=== PATIENT | female | born 1950 | race Caucasian/White ===

== ENCOUNTER → 2022-06-29 | Outpatient (CLI) | payer OTHER ==
[~2022-06-29] MED LIST: ADRENAL SUPPORT PO; AMLO5 PO; ASPI81CH PO; B Complex PO; BUPR150T2; CALCA500CH PO; CALCIUM 1200 PO; CENTRUM SILVER1 EAC2 PO; CHOL10002; CHOL10002 PO; CLON.5 PO; DULO60; ESCI10 PO; FLAX PO; FLUO20; HYDCHL25 PO; HYDPAM25 PO; IBUP200; LAMO25 PO; LORA2 PO; LOSA50 PO; LOSARTAN POTAS100 MG PO; NIFE10; NIFE30ER PO; PARO20 PO; PARO25 PO; PAXIL 25 MG PO; RISP1; RXLORA1 PO; VITS
== END | disposition home or self-care (01) ==
LOC: LAB 16:23 → LAB SHORT 16:23
DX: R53.83 Other fatigue (principal)
CPT/HCPCS: 87086; 87147

== ENCOUNTER 2024-08-18 14:40 | Inpatient (IN) | payer OTHER ==
[~2024-08-18] VITALS: Ht 162.6 cm; Wt 56.7 kg
[2024-08-18] MEDS ORDERED: Ondansetron HCl 2 MG / ML 2ML Vial IV ONE (15:05)
[2024-08-18 15:33] LABS: BASOPHILS ABSOLUTE AUTO 0.02 K/mm3 (0.00-0.23); BASOPHILS PERCENT AUTO 0 % (0-2); EOSINOPHILS PERCENT AUTO 0 % (0-6); Hematocrit 42.3 % (33.0-51.0); Hemoglobin 14.5 g/dL (11.5-16.0); IMMATURE GRAN ABSOLUTE AUTO 0.07 K/mm3 (0.00-0.10); IMMATURE GRAN PERCENT AUTO 1 % (0-1); LYMPHOCYTES ABSOLUTE AUTO 1.28 K/mm3 (0.84-5.20); LYMPHOCYTES PERCENT AUTO 11 % (21-46); MONOCYTES ABSOLUTE AUTO 0.85 K/mm3 (0.16-1.47); MONOCYTES PERCENT AUTO 7 % (4-13); Mean Corpuscular HGB 31.5 pg (26.0-34.0); Mean Corpuscular HGB Conc 34.3 g/dL (31.5-36.5); Mean Corpuscular Volume 92 fL (80-100); Mean Platelet Volume 9.1 fL (9.1-12.4); NEUTROPHILS ABSOLUTE AUTO 9.87 K/mm3 (1.96-9.15); NEUTROPHILS PERCENT AUTO 82 % (41-73); Platelet Count 295 K/mm3 (150-400); RDW Coefficient Variation 12.7 % (11.7-14.2); RDW Standard Deviation 42.8 fL (35.1-46.3); Red Blood Cell Count 4.61 M/mm3 (3.80-5.20); White Blood Cell Count 12.09 K/mm3 (4.00-11.30)
[2024-08-18 15:59] LABS: Albumin/Globulin Ratio 1.1 (0.8-1.8); Bun/Creatinine Ratio 24.3 (12.0-20.0); Calcium, Blood 9.1 mg/dL (8.5-10.1); Creatinine, Blood 0.82 mg/dL (0.40-1.00); Globulin, Blood 3.8 g/dL (2.2-4.0); Total Protein, Blood 7.8 g/dL (6.4-8.2)
[2024-08-18] MEDS ORDERED: Budeprion Xl300 MG PO (17:19)
[2024-08-18] MEDS ORDERED: ESCI20 PO (17:20)
[2024-08-18] MEDS ORDERED: LORA.5 PO (17:20)
[2024-08-18] MEDS ORDERED: Acetaminophen325 M1 PO (17:21)
[2024-08-18] MEDS ORDERED: LOSARTAN POTAS100 M1 PO (17:21)
[2024-08-18 17:22] LABS: Source, Urine Clean Catch
[2024-08-18] MEDS ORDERED: ELIQUIS5 M2 PO (17:22)
[2024-08-18] MEDS ORDERED: Potassium Chloride 40 MEQ in NS 250 ML IV ONE (17:25)
[2024-08-18] MEDS ORDERED: NS 500 ML IV SCH (17:30)
[2024-08-18 17:57] LABS: Appearance, Urine Clear (Clear); Blood, Urine 3+ (Neg); Color, Urine Amber (P-Yellow); Glucose Qualitative, Urine Neg (Neg); Ketones, Urine Neg (Neg); Leukocyte Esterase, Urine 1+ (Neg); Nitrite, Urine Neg (Neg); Protein, Urine 3+ (Neg); Specific Gravity, Urine 1.015 (1.003-1.022); Urobilinogen, Urine 1+ (Normal)
[2024-08-18] MEDS ORDERED: NS 1,000 ML BAG IR ONE (18:00)
[2024-08-18] MEDS ORDERED: Potassium Chloride 40 MEQ in NS 250 ML IV SCH (18:00)
[2024-08-18 18:04] LABS: Bilirubin, Urine 1+ (Neg)
[2024-08-18 18:06] LABS: Bacteria Few /hpf; Calcium Oxalate Crystals Mod /hpf; Hyaline Casts 0-2 /lpf (0-2); Red Blood Cells, Urine 0-2 /hpf (0-2); Squamous Epithelial Cells Few /hpf (Few)
[2024-08-18] MEDS ORDERED: NS 1,000 ML BAG IV ONE (18:30)
[2024-08-18] MEDS ORDERED: Ondansetron HCl 2 MG / ML 2ML Vial IV PRN ×2 (18:30→23:15)
[2024-08-18] MEDS ORDERED: FentaNYL Citrate 50 MCG/ML 2 ML Injection IV STA (18:38)
[2024-08-18] MEDS ORDERED: LORazepam 2 MG/ML 1ML Injection IV PRN (18:45)
[2024-08-18] MEDS ORDERED: FentaNYL Citrate 50 MCG/ML 2 ML Injection IV PRN ×2 (18:45→23:20)
[2024-08-18] MEDS ORDERED: NS 500 ML IV ONE (19:00)
[2024-08-18] MEDS ORDERED: CefOXitin Sodium 2,000 MG in NS 50 ML IV SCH (19:05)
[2024-08-18] MEDS ORDERED: NS 1,000 ML IV SCH (20:00)
[2024-08-18] MEDS ORDERED: propofoL 20 ML IV ONE (20:32)
[2024-08-18] MEDS ORDERED: FentaNYL Citrate 50 MCG/ML 2 ML Injection ONE ×3 (20:32→23:32)
[2024-08-18] MEDS ORDERED: Bupivacaine 0.5% HCl 5 MG/ML 30MLVIAL ONE (20:45)
[2024-08-18] MEDS ORDERED: ePHEDrine Sulfate 50 MG/ML 1ML Injection ONE (21:14)
--- NOTE | 2024-08-18 22:12 | NUR ---
08/18/242211 Tayler,Glenys GATES CATHETER INSTERTED BY THIS RN AT 2130. URINE OUTPUT UPON INSERTION WAS YELLOW.
[2024-08-18] MEDS ORDERED: Rocuronium Bromide 10 MG/ML 5ML Injection IV ONE (22:28)
[2024-08-18] MEDS ORDERED: Albuterol 2.5 MG/3 ML VIAL INH PRN (23:15)
[2024-08-18] MEDS ORDERED: Ondansetron HCl 2 MG / ML 2ML Vial ONE (23:20)
[2024-08-18] MEDS ORDERED: HYDROmorphone HCl/Pf 1MG SYR IV PRN (23:20)
[2024-08-18] MEDS ORDERED: Dexamethasone Sod Phos 10 MG/ML 1ML VIAL ONE (23:20)
[2024-08-18] MEDS ORDERED: Morphine Sulfate 4 MG/1 ML Injection IV PRN (23:20)
[2024-08-18] MEDS ORDERED: ePHEDrine Sulfate 50 MG/ML 1ML Injection IV PRN (23:20)
[2024-08-18] MEDS ORDERED: Sugammadex Sodium 200 MG/2ML SDV (100 MG/ML) ONE (23:22)
[2024-08-18] MEDS ORDERED: Ketorolac Tromethamine 30mg Vial IV PRN (23:30)
[2024-08-19] VITALS (19 sets, daily range): BP systolic 101–146; BP diastolic 70–98
[2024-08-19 01:25] LABS: Hematocrit 42.9 % (33.0-51.0); Hemoglobin 14.3 g/dL (11.5-16.0); Mean Corpuscular HGB 31.3 pg (26.0-34.0); Mean Corpuscular HGB Conc 33.3 g/dL (31.5-36.5); Mean Corpuscular Volume 94 fL (80-100); Mean Platelet Volume 8.8 fL (9.1-12.4); Platelet Count 222 K/mm3 (150-400); RDW Standard Deviation 44.7 fL (35.1-46.3); Red Blood Cell Count 4.57 M/mm3 (3.80-5.20); White Blood Cell Count 5.48 K/mm3 (4.00-11.30)
[2024-08-19 01:45] LABS: BAND PERCENT MAN 7 % (0-8); BASOPHILS PERCENT MAN 0 % (0-2); EOSINOPHILS PERCENT MAN 0 % (0-6); LYMPHOCYTES ABSOLUTE MAN 1.04 K/mm3 (0.84-5.20); LYMPHOCYTES PERCENT MAN 19 % (21-46); MONOCYTES ABSOLUTE MAN 0.43 K/mm3 (0.16-1.47); MONOCYTES PERCENT MAN 8 % (4-13); SEG NEUTROPHILS PERCENT MAN 66 % (41-73); TOTAL CELLS COUNTED 100
[2024-08-19 01:49] LABS: Albumin, Blood 2.7 g/dL (3.4-5.0); Bilirubin, Total 0.9 mg/dL (0.1-1.0); Bun/Creatinine Ratio 21.6 (12.0-20.0); Calcium, Blood 7.7 mg/dL (8.5-10.1); Creatinine, Blood 0.83 mg/dL (0.40-1.00); Globulin, Blood 2.7 g/dL (2.2-4.0); Potassium, Blood 3.7 mmol/L (3.5-5.5); Total Protein, Blood 5.4 g/dL (6.4-8.2)
[2024-08-19] MEDS ORDERED: DEXTROMETHORPHAN/BENZOCAINE 1 EACH LOZENGE MT PRN (06:25)
--- NOTE | 2024-08-19 06:42 | NUR ---
74 Y/O FEMALE ADMITTED FROM POST-OP AT 1252 THIS MORNING. PATIENT COMES IN POST SURGICAL FOR ROBOTIC SIGMOID COLECTOMY. SUSANNE DRESSING ON MID LOWER ABD. GATES CATHETER IS PRESENT. PATIENT HAS A HISTORY OF LEWY BODY DEMENTIA. ALTHOUGH IS A X 3. PATIENT PASSED LOOSE LIQUID STOOL TONIGHT. PASSING GAS. MAIN COMPLAINT IS A SORE THROAT FROM THE ETT. SLEPT MOST OF NIGHT. NEEDS REMINDERS, FORGETFUL. NPO CONTINUE CARE
[2024-08-19] MEDS ORDERED: OxyCODONE 5 mg/Acetamin 325 mg TABLET PO PRN ×2 (10:25→22:05)
--- NOTE | 2024-08-19 12:00 | NUR ---
PATIENT TRANSFERRED FROM PCU 20 TO ROOM 211, REPORT RECEIVED FROM EVELYN MICHEL. VSS, ON RA. REPORTS PAIN IS WELL MANAGED AT THIS TIME. SUSANNE DRAIN TO MIDLINE ABDOMINAL INCISION REMAINS C/D/I. PER REPORTS PAIN HAS HAD LIQUID STOOL AND PASSING GAS. PATIENT ORIENTED TO ROOM AND USE OF CALL LIGHT, BED ALARM SET AND FALL PRECAUTIONS IN PLACE.
--- NOTE | 2024-08-19 14:57 | NUR ---
ASSUMPTION OF CARE THIS RN ASSUMED CARE FOLLOWING REPORT FROM LIU RIVAS. PATIENT SLEEPING - EASILY AROUSABLE WITH VERBAL STIMULI. SPEECH SOFT - COMMUNICATES NEEDS EFFECTIVELY. TREMOR TO BUE NOTED. VSS. TELEMETRY SHOWING SINUS W/ PACs AT 91. DENIES CHEST PAIN, PRESSURE. ON ROOM AIR, SATs >90%. POD 1 SIGMOID COLECTOMY - ABD SOFT, HYPOACTIVE BOWEL TONES. DENIES PAIN, N/V. MIDLINE SUSANNE DRESSING WITH SCANT DRAINAGE. GATES CATHETER IN PLACE - DRAINING KORINA URINE TO GRAVITY. INCONTINENT OF STOOL - ATTENDS IN PLACE C/D/I. BED ALARM ON. CALL LIGHT IN REACH.
[2024-08-19] MEDS ORDERED: bupropion HCl XL 300 PO (15:45)
--- NOTE | 2024-08-19 17:33 | NUR ---
SHIFT SUMMARY NO ACUTE CHANGES SINCE ASSUMPTION OF CARE. PATIENT SLEEPING MOST OF THE AFTERNOON - REMAINS EASILY AROUSABLE WITH VERBAL STIMULI. VSS. NO EVENTS REPORTED BY TELEMETRY. POD 1 SIGMOID COLECTOMY. SUSANNE DRESSING C/D/I. DENIES ABD. DECREASED APPETITE - ENCOURAGING PO INTAKE DURING PERIODS OF WAKEFULNESS. GATES CATHETER IN PLACE - DRAINING KORINA URINE TO GRAVITY. EPISODES OF LOOSE STOOL - CHANGING ATTENDS PRN TO KEEP C/D/I. CALL LIGHT IN REACH. BED ALARM ON.
[2024-08-19] MEDS ORDERED: buPROPion HCL 150 MG TAB.SR.12H PO SCH (21:00)
[2024-08-19] MEDS ORDERED: NS 1,000 ML IV SCH (22:05)
--- NOTE | 2024-08-19 22:05 | NUR ---
CALL TO HOSPITALIST. CALL PLACED TO DISCUSS PAIN CONTROL AND FLUIDS. PT HAS DARK KORINA URINE IN GATES. NEW ORDERS RECEIVED FOR NS AT 100ML/HR AND CHANGE PERCOCET 5/325 FROM Q6 TO Q4. NOTIFIED PROVIDER OF TEMPERATURE 100.2 EARLIER IN SHIFT, ALSO NOTIFIED REDUCTION OF TEMP TO 98.7.
[2024-08-20] VITALS (8 sets, daily range): BP systolic 119–147; BP diastolic 71–91
[2024-08-20 04:32] LABS: BASOPHILS ABSOLUTE AUTO 0.01 K/mm3 (0.00-0.23); BASOPHILS PERCENT AUTO 0 % (0-2); EOSINOPHILS ABSOLUTE AUTO 0.01 K/mm3 (0.00-0.68); EOSINOPHILS PERCENT AUTO 0 % (0-6); Hematocrit 33.6 % (33.0-51.0); Hemoglobin 11.2 g/dL (11.5-16.0); IMMATURE GRAN ABSOLUTE AUTO 0.03 K/mm3 (0.00-0.10); IMMATURE GRAN PERCENT AUTO 0 % (0-1); LYMPHOCYTES ABSOLUTE AUTO 1.86 K/mm3 (0.84-5.20); LYMPHOCYTES PERCENT AUTO 20 % (21-46); MONOCYTES ABSOLUTE AUTO 0.93 K/mm3 (0.16-1.47); MONOCYTES PERCENT AUTO 10 % (4-13); Mean Corpuscular HGB 31.5 pg (26.0-34.0); Mean Corpuscular HGB Conc 33.3 g/dL (31.5-36.5); Mean Corpuscular Volume 94 fL (80-100); Mean Platelet Volume 9.1 fL (9.1-12.4); NEUTROPHILS ABSOLUTE AUTO 6.42 K/mm3 (1.96-9.15); NEUTROPHILS PERCENT AUTO 69 % (41-73); Platelet Count 183 K/mm3 (150-400); RDW Coefficient Variation 13.1 % (11.7-14.2); RDW Standard Deviation 45.3 fL (35.1-46.3); Red Blood Cell Count 3.56 M/mm3 (3.80-5.20); White Blood Cell Count 9.26 K/mm3 (4.00-11.30)
[2024-08-20 04:51] LABS: Albumin, Blood 2.3 g/dL (3.4-5.0); Albumin/Globulin Ratio 0.9 (0.8-1.8); Bilirubin, Total 0.9 mg/dL (0.1-1.0); Bun/Creatinine Ratio 24.2 (12.0-20.0); Calcium, Blood 7.8 mg/dL (8.5-10.1); Creatinine, Blood 1.24 mg/dL (0.40-1.00); Globulin, Blood 2.7 g/dL (2.2-4.0); Potassium, Blood 3.5 mmol/L (3.5-5.5)
--- NOTE | 2024-08-20 05:47 | NUR ---
SHIFT SUMMARY NOC. PT POD 2 FOR OPEN SIGMOID COLECTOMY. PT'S MIDLINE SUSANNE C/D/I. PT MEDICATED FOR PAIN WITH ORAL PERCOCET AND IV FENT. NEW ORDERS RECIEVED THIS SHIFT FOR FLUIDS AND INCREASED ORAL PAIN MED FREQUENCY. PT RESTED WITH EYES CLOSED AND CALL LIGHT IN REACH.
[2024-08-20] MEDS ORDERED: Citalopram Hydrobromide 20 MG Tab PO SCH (09:00)
[2024-08-20] MEDS ORDERED: Enoxaparin 40 MG/0.4 ML SYR SC SCH (09:00)
--- NOTE | 2024-08-20 11:35 | NUR ---
PT UP TO CHAIR FOR LUNCH WITH ONE ASSIST
--- NOTE | 2024-08-21 04:10 | NUR ---
SHIFT SUMMARY POD3 COLLECTOMY, MIDLINE SUSANNE DRESSING WITH SMALL PIN SIZE SHADOWING. DRESSING IS INTACT, COMPRESSED. PATIENT IS TOLERATING CL DIET, HAD ONE LARGE LOOSE STOOL THIS SHIFT. TOLERATES PO MEDICATIONS. USES CALL LIGHT, BED ALARM IS ON FOR SAFETY. VSS. ON TELE SR IN THE 80S.
[2024-08-21 04:15] VITALS: BP 137/60
[2024-08-21 04:38] LABS: BASOPHILS ABSOLUTE AUTO 0.01 K/mm3 (0.00-0.23); BASOPHILS PERCENT AUTO 0 % (0-2); EOSINOPHILS ABSOLUTE AUTO 0.08 K/mm3 (0.00-0.68); EOSINOPHILS PERCENT AUTO 1 % (0-6); Hematocrit 30.7 % (33.0-51.0); Hemoglobin 10.5 g/dL (11.5-16.0); IMMATURE GRAN ABSOLUTE AUTO 0.03 K/mm3 (0.00-0.10); IMMATURE GRAN PERCENT AUTO 0 % (0-1); LYMPHOCYTES ABSOLUTE AUTO 1.29 K/mm3 (0.84-5.20); LYMPHOCYTES PERCENT AUTO 19 % (21-46); MONOCYTES ABSOLUTE AUTO 0.64 K/mm3 (0.16-1.47); MONOCYTES PERCENT AUTO 9 % (4-13); Mean Corpuscular HGB 31.8 pg (26.0-34.0); Mean Corpuscular HGB Conc 34.2 g/dL (31.5-36.5); Mean Corpuscular Volume 93 fL (80-100); Mean Platelet Volume 8.5 fL (9.1-12.4); NEUTROPHILS ABSOLUTE AUTO 4.75 K/mm3 (1.96-9.15); NEUTROPHILS PERCENT AUTO 70 % (41-73); Platelet Count 179 K/mm3 (150-400); RDW Coefficient Variation 13.1 % (11.7-14.2); RDW Standard Deviation 45.1 fL (35.1-46.3)
[2024-08-21 05:02] LABS: Albumin, Blood 2.1 g/dL (3.4-5.0); Albumin/Globulin Ratio 0.8 (0.8-1.8); Bilirubin, Total 0.6 mg/dL (0.1-1.0); Bun/Creatinine Ratio 29.4 (12.0-20.0); Calcium, Blood 7.8 mg/dL (8.5-10.1); Creatinine, Blood 0.85 mg/dL (0.40-1.00); Globulin, Blood 2.8 g/dL (2.2-4.0); Potassium, Blood 3.2 mmol/L (3.5-5.5); Total Protein, Blood 4.9 g/dL (6.4-8.2)
[2024-08-21 07:07] VITALS: BP 147/76
[2024-08-21] MEDS ORDERED: NS 1,000 ML IV SCH (09:00)
[2024-08-21] MEDS ORDERED: Potassium Chl 20MEQ/Water100ML 100 ML IV STA (09:00)
--- NOTE | 2024-08-21 10:04 | NUR ---
MORNING NOTE THIS RN ASSUMED CARE AT APPROX 0715. PATIENT ALERT AND ORIENTED X3-4. CAN BE A BIT FORGETFUL. COMMUNICATES NEEDS EFFECTIVELY. ESSENTIAL TREMOR TO BUE NOTED. VSS. TELEMETRY SHOWING SINUS 60s. SBP 140s. MAP >65. DENIES CHEST PAIN, PRESSURE. IV POTASSIUM INFUSING PER EMAR. ON ROOM AIR, SATs >90%. DENIES SOB. POD 3 SIGMOID COLECTOMY - MIDLINE SUSANNE DRESSING WITH MINIMAL SANGUINOUS DRAINAGE. OTHERWISE C/D/I. MANAGING ABD PAIN PER EMAR. TOLERATING CLEAR LIQUID DIET - DIET ADVANCED TO FULL LIQUID THIS MORNING. DECREASED APPETITE NOTED - ENCOURAGING TOLERATED. UP WITH PHYSICAL THERAPY THIS MORNING. 1-2P ASSIST TO CHAIR OR BSC. CALL LIGHT IN REACH.
[2024-08-21 11:31] VITALS: BP 123/91
--- NOTE | 2024-08-21 13:26 | NUR ---
Upon receiving a referral for spiritual care, I visited the patient. She is sitting in a chair and alert. She tells me that she is healing well and is "as good as can be expected" emotionally. She welcomes prayer which I gladly supply. Patient responded well and showed signs of being comforted by the prayer.
[2024-08-21 14:59] VITALS: BP 140/84
--- NOTE | 2024-08-21 16:59 | NUR ---
SHIFT SUMMARY NO ACUTE CHANGES SINCE MORNING NOTE. PATIENT REMAINS ALERT AND ORIENTED X4. COMMUNICATES NEEDS EFFECTIVELY. BED ALARM/CHAIR ALARM IN USE FOR OCCASIONAL FORGETFULNESS. SLEPT INTERMITTENTLY THROUGHOUT DAY - EASILY AROUSABLE WITH VERBAL STIMULI. VSS. NO EVENTS REPORTED BY TELEMETRY. SBP 120s-140s. MAP >65. ON ROOM AIR, SATs >90%. RR EVEN, UNLABORED. POD 3 COLECTOMY - NO CHANGES TO MIDLINE SUSANNE DX FROM PREVIOUS ASSESSMENTS. REMAINS C/D/I. EPISODES OF LOOSE STOOL. TOLERATING ADVANCED FULL LIQUID DIET. MANAGING ABD PAIN PER EMAR. VOIDING. CHANGING ATTENDS PRN FOR INCONTINENCE MANAGEMENT. UP WITH 1P ASSIST FWW GB TO CHAIR OR BSC. UP IN CHAIR MAJORITY OF THE DAY. CALL LIGHT IN REACH.
[2024-08-21] MEDS ORDERED: Protein Supplement 30 ML UD PO SCH (17:00)
[2024-08-21 19:49] VITALS: BP 151/67
[2024-08-22] VITALS (8 sets, daily range): BP systolic 132–163; BP diastolic 64–92
--- NOTE | 2024-08-22 04:23 | NUR ---
SHIFT SUMMARY AOX3-4, UP IN CHAIR T/O SHIFT, MEDICATED FOR PAIN, PASSING LIQUID STOOL AND FLATUS. MIDLINE SUSANNE WITH PINPOINT SHADOW, INTACT AND COMPRESSED. USES GB, FWW AND 1 ASSIST TO TRANSFER TO BED AND BSC. BED ALARM ON FOR SAFETY. NO ACUTE EVENTS.
[2024-08-22 05:29] LABS: BASOPHILS ABSOLUTE AUTO 0.01 K/mm3 (0.00-0.23); BASOPHILS PERCENT AUTO 0 % (0-2); EOSINOPHILS ABSOLUTE AUTO 0.14 K/mm3 (0.00-0.68); EOSINOPHILS PERCENT AUTO 3 % (0-6); Hematocrit 29.2 % (33.0-51.0); Hemoglobin 9.6 g/dL (11.5-16.0); IMMATURE GRAN ABSOLUTE AUTO 0.01 K/mm3 (0.00-0.10); IMMATURE GRAN PERCENT AUTO 0 % (0-1); LYMPHOCYTES ABSOLUTE AUTO 1.24 K/mm3 (0.84-5.20); LYMPHOCYTES PERCENT AUTO 23 % (21-46); MONOCYTES ABSOLUTE AUTO 0.51 K/mm3 (0.16-1.47); MONOCYTES PERCENT AUTO 9 % (4-13); Mean Corpuscular HGB 30.7 pg (26.0-34.0); Mean Corpuscular HGB Conc 32.9 g/dL (31.5-36.5); Mean Corpuscular Volume 93 fL (80-100); Mean Platelet Volume 8.8 fL (9.1-12.4); NEUTROPHILS ABSOLUTE AUTO 3.53 K/mm3 (1.96-9.15); NEUTROPHILS PERCENT AUTO 65 % (41-73); Platelet Count 204 K/mm3 (150-400); RDW Coefficient Variation 13.2 % (11.7-14.2); RDW Standard Deviation 44.8 fL (35.1-46.3); Red Blood Cell Count 3.13 M/mm3 (3.80-5.20); White Blood Cell Count 5.44 K/mm3 (4.00-11.30)
[2024-08-22 06:03] LABS: Albumin, Blood 2.3 g/dL (3.4-5.0); Albumin/Globulin Ratio 0.8 (0.8-1.8); Bilirubin, Total 0.7 mg/dL (0.1-1.0); Bun/Creatinine Ratio 23.6 (12.0-20.0); Calcium, Blood 7.9 mg/dL (8.5-10.1); Creatinine, Blood 0.85 mg/dL (0.40-1.00); Globulin, Blood 2.9 g/dL (2.2-4.0); Total Protein, Blood 5.2 g/dL (6.4-8.2)
[2024-08-22] MEDS ORDERED: NS 1,000 ML IV SCH (09:00)
[2024-08-22] MEDS ORDERED: Citalopram Hydrobromide 20 MG Tab PO SCH (09:00)
[2024-08-22] MEDS ORDERED: Potassium Chl 20MEQ/Water100ML 100 ML IV STA (09:54)
--- NOTE | 2024-08-22 11:27 | NUR ---
MORNING NOTE THIS RN ASSUMED CARE AT APPROX 0715. PATIENT ALERT AND ORIENTED X3-4. CAN BE FORGETFUL, EASILY REDIRECTABLE. BED ALARM/CHAIR ALARM FOR SAFETY. TELEMETRY SHOWING SR 50s-60s. SBP 150s-160s. DENIES CHEST PAIN, PRESSURE. DISCUSSED WITH MD DELGADO WHILE ROUNDING - PATIENT TO START HOME COZAAR TOMORROW MORNING. IV POTASSIUM INFUSING PER EMAR FOR REPLACEMENT. ON ROOM AIR, SATs >90%. DENIES SOB. TOLERATING FULL LIQUID DIET - ENCOURAGING INCREASED PO INTAKE. ABD SOFT, TENDER. NORMOACTIVE BOWEL TONES. MIDLINE USSANNE DRESSING WITH MINIMAL SANGUINOUS DRAINAGE. MANAGING ABD PAIN PER EMAR. LOOSE BMs. BEDBATH PERFORMED. AMBULATING WITH SBA FWW GB. CURRENTLY UP IN CHAIR. CALL LIGHT IN REACH.
--- NOTE | 2024-08-22 16:17 | NUR ---
SHIFT SUMMARY NO ACUTE CHANGES SINCE MORNING NOTE. PATIENT REMAINS ALERT AND ORIENTED X3-4. EASILY REDIRECTABLE. BED ALARM/CHAIR ALARM IN USE. VSS. SBP 130s. MAP >65. DENIES CHEST PAIN, PRESSURE. NO EVENTS REPORTED BY TELEMETRY. REMAINS ON ROOM AIR, SATs >90%. POD 4 SIGMOID COLECTOMY - MIDLINE SUSANNE DRESSING WITH SCANT DRIED SANGUINOUS DRAINAGE. TOLERATING FULL LIQUID DIET - INCREASED PO INTAKE SINCE YESTERDAY. MANAGING ABD PAIN PER EMAR. AMBULATING WITH SBA FWW GB. VOIDING. EPISODES OF LOOSE STOOL. CALL LIGHT IN REACH.
[2024-08-23 02:49] VITALS: BP 181/81
[2024-08-23 03:24] VITALS: BP 144/74
[2024-08-23 03:25] VITALS: BP 144/74
--- NOTE | 2024-08-23 04:15 | NUR ---
SHIFT SUMMARY POD 5 S/P SIGMOID COLECTOMY. SUSANNE TO MIDLINE COMPRESSED AND INTACT, NO NEW DRAINAGE NOTED. PAIN MANAGED PER EMAR WITH 1 PO TAB. IVF INFUSING PER ORDERS. PT VOIDING FREQUENTLY AND HAVING SMALL LOOSE BM'S. AMB WITH SBA/FWW TO BATHROOM. OLGA FL DIET, DENIES N/V. PT CURRENTLY RESTING IN BED WITH CALL LIGHT IN REACH AND ALARM ON FOR SAFETY. WILL GIVE REPORT TO ONCOMING RN.
[2024-08-23 05:16] LABS: BASOPHILS ABSOLUTE AUTO 0.03 K/mm3 (0.00-0.23); BASOPHILS PERCENT AUTO 1 % (0-2); EOSINOPHILS ABSOLUTE AUTO 0.22 K/mm3 (0.00-0.68); EOSINOPHILS PERCENT AUTO 3 % (0-6); Hematocrit 28.5 % (33.0-51.0); Hemoglobin 9.9 g/dL (11.5-16.0); IMMATURE GRAN ABSOLUTE AUTO 0.04 K/mm3 (0.00-0.10); IMMATURE GRAN PERCENT AUTO 1 % (0-1); LYMPHOCYTES ABSOLUTE AUTO 1.49 K/mm3 (0.84-5.20); LYMPHOCYTES PERCENT AUTO 23 % (21-46); MONOCYTES ABSOLUTE AUTO 0.77 K/mm3 (0.16-1.47); MONOCYTES PERCENT AUTO 12 % (4-13); Mean Corpuscular HGB 31.6 pg (26.0-34.0); Mean Corpuscular HGB Conc 34.7 g/dL (31.5-36.5); Mean Corpuscular Volume 91 fL (80-100); Mean Platelet Volume 8.5 fL (9.1-12.4); NEUTROPHILS ABSOLUTE AUTO 4.02 K/mm3 (1.96-9.15); NEUTROPHILS PERCENT AUTO 61 % (41-73); Platelet Count 216 K/mm3 (150-400); RDW Coefficient Variation 13.1 % (11.7-14.2); RDW Standard Deviation 43.5 fL (35.1-46.3); Red Blood Cell Count 3.13 M/mm3 (3.80-5.20); White Blood Cell Count 6.57 K/mm3 (4.00-11.30)
[2024-08-23 05:38] LABS: Albumin, Blood 2.4 g/dL (3.4-5.0); Albumin/Globulin Ratio 0.8 (0.8-1.8); Bilirubin, Total 0.6 mg/dL (0.1-1.0); Bun/Creatinine Ratio 27.4 (12.0-20.0); Calcium, Blood 8.1 mg/dL (8.5-10.1); Creatinine, Blood 0.73 mg/dL (0.40-1.00); Globulin, Blood 2.9 g/dL (2.2-4.0); Potassium, Blood 3.6 mmol/L (3.5-5.5); Total Protein, Blood 5.3 g/dL (6.4-8.2)
[2024-08-23 07:29] VITALS: BP 148/68
[2024-08-23] MEDS ORDERED: Losartan Potassium 50 MG Tab PO SCH (09:00)
[2024-08-23] MEDS ORDERED: Ondansetron 4 MG SoluTab SL ONE (09:05)
--- NOTE | 2024-08-23 11:20 | NUR ---
REPORT PASSED TO DENISE RIVAS AT [facility] AT THIS TIME
--- NOTE | 2024-08-23 13:58 | NUR ---
ATTEMPTED TO CONTACT PT'S SON TO NOTIFY HIM OF DC TO [facility]. CAREGIVER HERE AND NOTIFIED.
--- NOTE | 2024-08-23 14:06 | NUR ---
DISCHARGE TO SNF: TRANSPORT HERE AT 1350 AND PT HELPED TO WHEELCHAIR AND TRANSPORTER GIVEN DC PACKET.
== END 2024-08-23 13:38 | DRG 330 ==
LOC: ER 14:40 → SURS 18:25 → ERHOLD 18:25 → SURS 18:25 → PCU 18:25 → SURS 08-19 11:59
PROVIDERS: Family Medicine; Nurse Practitioner Acute Care; Student in an Organized Health Care Education/Training Program; Surgery; ADMIT Internal Medicine
PROC: 0WJG4ZZ Inspection of Peritoneal Cavity, Percutaneous Endoscopic Approach (ICD-10-PCS; 2024-08-18)
PROC: 0DTN0ZZ Resection of Sigmoid Colon, Open Approach (ICD-10-PCS; principal; 2024-08-18 20:30)
DX: K56.2 Volvulus (principal); E87.1 Hypo-osmolality and hyponatremia; F03.93 Unspecified dementia, unspecified severity, with mood disturbance; F03.94 Unspecified dementia, unspecified severity, with anxiety; I48.92 Unspecified atrial flutter; Q43.8 Other specified congenital malformations of intestine; N18.31 Chronic kidney disease, stage 3a; I12.9 Hypertensive chronic kidney disease with stage 1 through stage 4 chronic kidney disease, or unspecified chronic kidney disease; E87.6 Hypokalemia; R74.8 Abnormal levels of other serum enzymes; D63.1 Anemia in chronic kidney disease; Z88.0 Allergy status to penicillin; Z79.82 Long term (current) use of aspirin; Z79.01 Long term (current) use of anticoagulants; Z53.31 Laparoscopic surgical procedure converted to open procedure
CPT/HCPCS: 36415; 74177; 80053; 81001; 83605; 83690; 83735; 85025; 87086; 88307; 93005; 93010; 94760; 96374-59; 96375; 97110; 97116; 97161; 97530; 99285-25; A6590; A9270; J0694; J1100; J1650; J2405; J2704; J3010; J3480; J7030; J7040; J7050; Q9967